=== PATIENT | female | born 1935 | race Caucasian/White ===

== ENCOUNTER 2023-07-28 10:55 | Emergency (ER) | payer MEDICARE ==
[~2023-07-28] VITALS: Ht 167.6 cm; Wt 60.8 kg
[2023-07-28 10:55] VITALS: BP_SYST 127; PULSE 86; RESP 20; TEMP 97.7; O2SAT 96
[2023-07-28] MEDS ORDERED: FOLIC ACID 1 MG, THIAMINE HCL 100 MG, MAGNESIUM SULFATE 1 GM, MVI 10 ML in NACL 0.9% 1,... IV ONE (11:00)
[2023-07-28] MEDS ORDERED: INSULIN REGULAR, HUMAN 100 UNITS/ML, 3 ML VIAL (humuLIN R) SUBCUT PRN (11:45)
[2023-07-28 12:08] LABS: BASOPHILS % (AUTO) 0.4 % (0.0-2.0); EOSINOPHILS # (AUTO) 0.1 K/uL (0.0-0.4); EOSINOPHILS % (AUTO) 1.2 % (0.0-4.0); HEMATOCRIT 45.2 % (36-48); HEMOGLOBIN 15.2 g/dL (12.0-16.0); LYMPHOCYTES % (AUTO) 17.6 % (20.5-51.5); MEAN CORPUSCULAR HEMOGLOBIN 35 pg (27-31); MEAN CORPUSCULAR HGB CONC 34 % (32-36); MEAN CORPUSCULAR VOLUME 104 fL (79.0-98.0); MONOCYTES # (AUTO) 0.7 K/uL (0.0-1.0); MONOCYTES % (AUTO) 12.2 % (1.7-9.3); NEUTROPHILS # (AUTO) 3.9 K/uL (1.8-7.7); NEUTROPHILS % (AUTO) 68.6 % (40.0-70.0); PLATELET COUNT (AUTO) 190 K/uL (130-430); RED BLOOD CELL COUNT(AUTO) 4.34 MIL/uL (4.2-6.2); RED CELL DISTRIBUTION WIDTH 18.3 % (9.0-15.0); WHITE BLOOD COUNT (AUTO) 5.7 K/uL (4.8-10.8)
[2023-07-28] MEDS: FOLIC ACID 1 MG, MVI 10 ML in NACL 0.9% 1,000 ML IV ONE (12:15)
[2023-07-28] MEDS: THIAMINE HCL 100 MG, MAGNESIUM SULFATE 1 GM in NS 100 ML IV ONE (12:24)
[2023-07-28 12:25] LABS: INR 1.1 (0.8-1.2); PROTHROMBIN TIME 11.1 SECS (9.5-12.5)
[2023-07-28 12:26] LABS: ANION GAP 17 (5-15); CALCIUM 9.7 mg/dL (8.4-11.0); CARBON DIOXIDE 23 mmol/L (23-29); CHLORIDE 101 mmol/L (98-107); CREATININE 0.76 mg/dL (0.55-1.30); GLUCOSE 103 mg/dL (74-106); POTASSIUM 3.8 mmol/L (3.5-5.1); SODIUM SERUM 141 mmol/L (136-145); UREA NITROGEN, BLOOD 12 mg/dL (8-21)
[2023-07-28 12:32] LABS: ALANINE AMINOTRANSFERASE 62 U/L (12-78); ALBUMIN 3.1 g/dL (3.4-4.8); ALCOHOL, BLOOD 113 mg/dL (<10); ASPARTATE AMINOTRANSFERASE 169 U/L (10-37); BILIRUBIN,DIRECT 0.6 mg/dL (0.0-0.3); CREATINE KINASE, TOTAL 37 U/L (26-192); LIPASE 101 U/L (16-77); TOTAL BILIRUBIN 1.1 mg/dL (0.0-1.0)
[2023-07-28] MEDS ORDERED: LORA-259 PO (13:35)
[2023-07-28 15:50] VITALS: BP_SYST 127; PULSE 86; RESP 20; TEMP 97.7; O2SAT 96
== END 2023-07-28 15:41 | disposition home or self-care (01) ==
LOC: SED 10:55
DX: F10.20 Alcohol dependence, uncomplicated (principal); R53.1 Weakness; Z79.899 Other long term (current) drug therapy; Y90.6 Blood alcohol level of 120-199 mg/100 ml
CPT/HCPCS: 99285; 96365; 70450; 80076; 80048; 82140; 82550; 83690; 85025; 85610; 85730; 84484; 36415; 96368; G0482; J3490; J3475; J3411; J7030; 93005